=== PATIENT | male | born 1970 | race Caucasian/White ===

== ENCOUNTER 2021-12-27 10:21 | Emergency (ER) | payer OTHER ==
[2021-12-27] MEDS ORDERED: TYLE650T38 PO (10:34)
[2021-12-27] MEDS ORDERED: KETOROLAC TROMETHAMINE 10 MG TAB PO ONE (11:45)
[2021-12-27] MEDS ORDERED: KETO10TAB PO (13:33)
[2021-12-27 13:43] VITALS: BP 139/96
== END 2021-12-27 13:44 | disposition home or self-care (01) ==
LOC: M ED 10:21
DX: M79.662 Pain in left lower leg (principal); Z87.891 Personal history of nicotine dependence

== ENCOUNTER → 2021-12-30 | Outpatient (CLI) | payer OTHER ==
[~2021-12-30] MED LIST: KETO10TAB PO; TYLE650T38 PO
== END ==
LOC: M SOG 11:03
PROVIDERS: ATTEND Orthopaedic Surgery
DX: M79.605 Pain in left leg (principal)

== ENCOUNTER 2022-11-29 11:48 | Emergency (ER) | payer OTHER, SELFPAY ==
[~2022-11-29] VITALS: Ht 182.9 cm; Wt 77.3 kg
[2022-11-29 11:49] VITALS: BP 129/76
== END 2022-11-29 18:15 | disposition left against medical advice (07) ==
LOC: M ED 11:48
DX: Z53.21 Procedure and treatment not carried out due to patient leaving prior to being seen by health care provider (principal)